=== PATIENT | male | born 1990 | race Caucasian/White ===

== ENCOUNTER 2020-10-19 23:38 | Emergency (ER) | payer BC, OTHER ==
[~2020-10-19] VITALS: Ht 182.9 cm; Wt 120.7 kg
[~2020-10-19 23:38] MED LIST: AMOX500 PO; IBUP800 PO; PENVK500 PO; SULTRIDS PO
[2020-10-20] MEDS ORDERED: Phentermine HCl15 MG PO (00:23)
== END 2020-10-20 01:01 | disposition home or self-care (01) ==
LOC: ER 23:38
DX: B34.9 Viral infection, unspecified (principal); Z20.822 Contact with and (suspected) exposure to COVID-19; Z87.891 Personal history of nicotine dependence; Z79.899 Other long term (current) drug therapy
CPT/HCPCS: 99282